=== PATIENT | male | born 1975 ===

== ENCOUNTER 2023-10-16 07:24 | Day surgery (SDC) | payer OTHER ==
[2023-10-14 08:24] LABS: PH,URINE 5.5 (5.0-8.0); URINE APPEARANCE Clear; URINE BILIRRUBIN Negative (NEGATIVE); URINE BLOOD Negative; URINE COLOR Yellow; URINE GLUCOSE Negative (NEGATIVE); URINE LEUKOCYTE Negative; URINE NITRATE Negative; URINE PROTEIN Negative (NEGATIVE); URINE UROBILINOGEN 0.2 E.U./dl
[2023-10-14 08:25] LABS: URINE BACTERIA 6.2 uL (0.0-1933); URINE EPITHELIAL CELLS 2.6 uL (0.0-38.8); URINE WBC 2.3 uL (0.0-23.2)
[2023-10-14 08:33] LABS: HEMATOCRIT 44.6 % (39.0-48.0); HEMOGLOBIN 15.7 g/dL (13-16.00); MEAN CELL VOLUME 91.5 fL (80.0-100.00); MEAN CORPUSCULAR HEMOGLOBIN 32.3 pg (27.00-32.0); MEAN CORPUSCULAR HGB CONC 35.3 g/dl (32.0-36.0); PLATELET COUNT 339 K/uL (150-450); RED BLOOD COUNT 4.87 M/uL (4.00-6.00); RED CELL DISTRIBUTION WIDTH 13.4 % (11.5-14.5)
[2023-10-14 08:36] LABS: URINE RBC 1.3 uL (0.0-20.8)
[2023-10-14 08:41] LABS: INR 0.94; PARTIAL THROMBOPLASTIN TIME 30.8 SECONDS (22.0-34.0); PROTHROMBIN TIME 9.9 SECONDS (9.0-11.5)
[2023-10-14 09:30] LABS: CALCIUM 10.1 mg/dL (8.5-10.1); CREATININE SERUM 0.78 mg/dL (0.70-1.30); GFR 106.69
[~2023-10-16] VITALS: Ht 180.3 cm; Wt 86.2 kg
[2023-10-16] MEDS ORDERED: MIRALAX17 GM PO (10:15)
[2023-10-16] MEDS ORDERED: KETO10TA2 PO (10:15)
[2023-10-16] MEDS ORDERED: TYLENOL ARTHRI650 MG PO (10:15)
[2023-10-16] MEDS ORDERED: TRAMADOL HCL50 MG PO (10:15)
[2023-10-16] MEDS ORDERED: BUPIVACAINE HCL/PF 0.25% 30ML VIAL InF ONE (10:30)
[2023-10-16] MEDS ORDERED: CEFAZOLIN SODIUM 1,000 MG VIAL IV ONE (10:30)
[2023-10-16] MEDS ORDERED: KETOROLAC TROMETHAMINE 30 MG VIAL IV ONE (11:30)
[2023-10-16] MEDS ORDERED: SUGAMMADEX SODIUM 200 MG/2 ML VIAL IV ONE (11:30)
== END 2023-10-16 16:01 | disposition home or self-care (01) ==
LOC: CIR.AMB 07:24
PROVIDERS: ATTEND Surgery
DX: K42.0 Umbilical hernia with obstruction, without gangrene (principal)
CPT/HCPCS: 49594; C1781